=== PATIENT | female | born 1980 | race Two or more races ===

== ENCOUNTER 2023-04-25 13:54 | Emergency (ER) | payer OTHER ==
[~2023-04-25] VITALS: Ht 157.5 cm; Wt 68.0 kg
[2023-04-25] MEDS ORDERED: GUAIFENESIN/DEXTROMETHORPHAN 100 MG/5 ML ML PO STA (16:21)
[2023-04-25] MEDS ORDERED: CETIRIZINE HCL 5 MG/5 ML ML PO STA (16:21)
[2023-04-25 17:09] LABS: HEMATOCRIT 35.7 % (36.0-45.00); HEMOGLOBIN 12.3 g/dL (12.0-15.00); MEAN CELL VOLUME 92.3 fL (80.00-100.00); MEAN CORPUSCULAR HEMOGLOBIN 31.9 pg (27.00-32.0); MEAN CORPUSCULAR HGB CONC 34.6 g/dl (32.0-36.0); PLATELET COUNT 389 K/uL (150-450); RED BLOOD COUNT 3.87 M/uL (4.00-6.00); RED CELL DISTRIBUTION WIDTH 13.6 % (11.5-14.5)
[2023-04-25 17:38] LABS: CALCIUM 9.3 mg/dL (8.5-10.1); CREATININE SERUM 0.71 mg/dL (0.55-1.02); GFR 89.85; POTASSIUM 3.7 mEq/L (3.5-5.1)
[2023-04-25] MEDS ORDERED: AYR SALINE50 ML NASAL (18:08)
[2023-04-25] MEDS ORDERED: MUCINEX D ER 61 EACH PO (18:08)
== END 2023-04-25 18:24 | disposition home or self-care (01) ==
LOC: ER 13:55
PROVIDERS: General Practice
DX: J06.9 Acute upper respiratory infection, unspecified (principal); Z20.822 Contact with and (suspected) exposure to COVID-19